=== PATIENT | female | born 1990 | race Caucasian/White ===

== ENCOUNTER 2024-07-01 15:53 | Emergency (ER) | payer OTHER ==
[~2024-07-01] VITALS: Ht 162.5 cm; Wt 71.7 kg
[2024-07-01] MEDS ORDERED: methylPREDNISolone sod succ 125 MG VIAL IM ONE (16:25)
[2024-07-01] MEDS ORDERED: PREDNISONE20 M1 PO (16:31)
== END 2024-07-01 16:36 | disposition home or self-care (01) ==
LOC: ED 15:53
DX: L25.9 Unspecified contact dermatitis, unspecified cause (principal)